=== PATIENT | male | born 1940 | race Caucasian/White ===

== ENCOUNTER 2021-07-26 00:09 | Inpatient (IN) ==
[2021-07-26] MEDS ORDERED: ENOXAPARIN 100 MG/ML SYRINGE SUBCUT STA (00:53)
[2021-07-26] MEDS ORDERED: ENOXAPARIN 40 MG/0.4 ML SYRINGE SUBCUT STA (00:55)
[2021-07-26 02:11] LABS: Basophils % 0.4 % (0.0-0.8); Eosinophils # 0.2 10*3/uL (0.0-0.87); Hematocrit 34.5 VOL% (42.0-52.0); Hemoglobin 11.2 GM/DL (14.0-18.0); Immature Granulocytes % 0.3 %; Immature Granulocytes Absolute 0.03 #; Lymphocytes % 9.7 % (21.2-54.2); Mean Corpuscular HGB Conc 32.5 GM/DL (32-36); Mean Corpuscular Volume 94.8 FL (87-102); Mean Platelet Volume 10.8 FL (9.6-12.0); Monocytes % 2.7 % (1.7-12.7); Neutrophils % 84.9 % (38.7-73.9); Platelet Count 151 T/CUMM (130-400); Red Blood Count 3.64 MC/CUMM (3.8-5.5); Red Cell Distribution Width 12.8 % (9.3-17.3); White Blood Count 10.5 T/CUMM (4-12)
[2021-07-26 02:38] LABS: Albumin 3.4 G/DL (3.4-5.0); Bilirubin,Total 0.4 MG/DL (0.20-1.00); Calcium 9.3 MG/DL (8.5-10.1); Osmolality,Calculated 285.4 MOS/KG (273-304); Potassium 4.5 MMOL/L (3.5-5.1); Thyroid Stimulating Hormone 3.66 uIU/ml (0.358-3.74); Total Protein 6.2 G/DL (6.4-8.2)
[2021-07-26 02:52] LABS: INR 1.1; PT Patient Result 11.9 SECS (10.5-12.0)
[2021-07-26] MEDS ORDERED: DOBUTamine 500 MG/250 ML PREMIX IV SCH (03:05)
[2021-07-26] MEDS ORDERED: MAGNESIUM SULF RIDER 2 GM/50 ML PREMIX IV PRN (03:05)
[2021-07-26] MEDS ORDERED: hydrALAZINE 20 MG/1 ML VIAL IV PRN (03:05)
[2021-07-26] MEDS ORDERED: MAGNESIUM SULF RIDER 4 GM/100 ML PREMIX IV PRN (03:05)
[2021-07-26] MEDS ORDERED: ONDANSETRON 4 MG/2 ML VIAL IV PRN (03:05)
[2021-07-26] MEDS ORDERED: MORPHINE 4 MG/1 ML VIAL IV PRN (03:05)
[2021-07-26] MEDS: SODIUM CHLORIDE 0.9% 1,000 ML IV SCH ×2 (03:14→23:05)
[2021-07-26 04:27] LABS: Barbiturates Screen,Urine Negative (Negative); Benzodiazepines Screen,Urine Negative (Negative); Cannabinoid Screen,Urine Negative (Negative); Opiate Screen,Urine Negative (Negative); Phencyclidine Screen,Urine Negative (Negative)
[2021-07-26 05:35] LABS: Basophils % 0.3 % (0.0-0.8); Eosinophils # 0.2 10*3/uL (0.0-0.87); Eosinophils % 2.2 % (0.00-10.9); Hematocrit 34.9 VOL% (42.0-52.0); Hemoglobin 11.5 GM/DL (14.0-18.0); Immature Granulocytes % 0.2 %; Immature Granulocytes Absolute 0.02 #; Lymphocytes # 1.7 10*3/uL (1.4-4.0); Lymphocytes % 19.1 % (21.2-54.2); Mean Corpuscular Volume 93.6 FL (87-102); Mean Platelet Volume 11.1 FL (9.6-12.0); Monocytes % 4.5 % (1.7-12.7); Neutrophils % 73.7 % (38.7-73.9); Platelet Count 149 T/CUMM (130-400); Red Blood Count 3.73 MC/CUMM (3.8-5.5); Red Cell Distribution Width 12.6 % (9.3-17.3); White Blood Count 9.1 T/CUMM (4-12)
[2021-07-26 05:52] LABS: Albumin 3.1 G/DL (3.4-5.0); Bilirubin,Total 0.5 MG/DL (0.20-1.00); Calcium 9.1 MG/DL (8.5-10.1); Osmolality,Calculated 280.7 MOS/KG (273-304); Potassium 4.8 MMOL/L (3.5-5.1); Risk Ratio 3.66; Total Protein 6.3 G/DL (6.4-8.2); VLDL Cholesterol 20.6 MG/DL
[2021-07-26] MEDS ORDERED: ALBUTEROL 2 MG TABLET PO SCH (09:39)
[2021-07-26] MEDS ORDERED: DOPamine 800 MG/250 ML PREMIX IV ONE (09:46)
[2021-07-26] MEDS: PANTOPRAZOLE 40 MG TABLET PO SCH (10:15)
[2021-07-26] MEDS ORDERED: DOPamine 800 MG/250 ML PREMIX IV PRN (10:39)
[2021-07-26] MEDS ORDERED: diphenhydrAMINE CAP 25 MG CAPSULE PO ONE (10:40)
[2021-07-26] MEDS ORDERED: DIAZEPAM 5 MG TABLET PO ONE (10:40)
[2021-07-26] MEDS ORDERED: ceFAZolin 1,000 MG VIAL IRRIG ONE (10:40)
[2021-07-26 11:25] VITALS: BP 122/49
[2021-07-26] MEDS ORDERED: HEPARIN/NACL 0.9% 2 UNITS/ML 1,000 UNIT/500 ML BAG IV ONE (11:31)
[2021-07-26] MEDS ORDERED: LIDOCAINE 1%/EPI INJ 20 ML VIAL ONE (11:40)
[2021-07-26] MEDS ORDERED: ceFAZolin 1,000 MG VIAL ONE (11:41)
[2021-07-26] MEDS ORDERED: HYDROmorphone 1 MG/1 ML SYRINGE ONE ×2 (11:44→12:34)
[2021-07-26] MEDS ORDERED: MIDAZOLAM 2 MG/2 ML VIAL ONE (11:44)
[2021-07-26] MEDS ORDERED: ONDANSETRON 4 MG/2 ML VIAL ONE (11:50)
[2021-07-26] MEDS ORDERED: TISSUE ADHESIVE 1 EACH APPLICATOR TOP ONE (12:35)
[2021-07-26] MEDS ORDERED: PNEUMOCOCCAL VACCINE (13 VALENT) 0.5 ML SYRINGE IM ONE (12:57)
[2021-07-26] MEDS ORDERED: diphenhydrAMINE CAP 25 MG CAPSULE PO PRN (13:56)
[2021-07-26] MEDS ORDERED: SENNA 8.6 MG TABLET PO PRN (14:02)
[2021-07-26] MEDS: ASPIRIN EC 81 MG TABLET PO SCH (15:36)
[2021-07-26] MEDS: TAMSULOSIN 0.4 MG CAPSULE PO SCH (15:37)
[2021-07-26] MEDS: fentaNYL 75 MCG/HR PATCH TRANSDERM SCH ×3 (15:37→20:39)
[2021-07-26] MEDS: SERTRALINE 100 MG TABLET PO SCH (15:37)
[2021-07-26] MEDS: carvediloL 25 MG TABLET PO SCH (17:21)
[2021-07-26] MEDS: MEMANTINE 5 MG TABLET PO SCH (20:16)
[2021-07-26] MEDS ORDERED: NON-FORMULARY MEDICATION (Bifidobacterium Infantis [Align] 4 mg Capsule) PO SCH (21:00)
[2021-07-26] MEDS ORDERED: SIMVASTATIN 20 MG TABLET PO SCH (21:00)
[2021-07-26] MEDS ORDERED: AMITRIPTYLINE 10 MG TABLET PO SCH (21:00)
[2021-07-26] MEDS ORDERED: DONEPEZIL 5 MG TABLET PO SCH (21:00)
[2021-07-26] MEDS ORDERED: NON-FORMULARY MEDICATION (Naproxen Sodium [Aleve] 220 mg Capsule) PO SCH (21:00)
[2021-07-27] MEDS: fentaNYL 75 MCG/HR PATCH TRANSDERM SCH ×5 (01:00→12:28)
[2021-07-27 04:19] LABS: Basophils % 0.3 % (0.0-0.8); Eosinophils # 0.6 10*3/uL (0.0-0.87); Eosinophils % 6.6 % (0.00-10.9); Hematocrit 35.5 VOL% (42.0-52.0); Hemoglobin 11.6 GM/DL (14.0-18.0); Immature Granulocytes % 0.5 %; Immature Granulocytes Absolute 0.04 #; Lymphocytes # 1.2 10*3/uL (1.4-4.0); Mean Corpuscular HGB Conc 32.7 GM/DL (32-36); Mean Corpuscular Volume 94.2 FL (87-102); Mean Platelet Volume 10.5 FL (9.6-12.0); Neutrophils % 71.6 % (38.7-73.9); Platelet Count 153 T/CUMM (130-400); Red Blood Count 3.77 MC/CUMM (3.8-5.5); Red Cell Distribution Width 12.8 % (9.3-17.3); White Blood Count 8.6 T/CUMM (4-12)
[2021-07-27 04:26] LABS: Osmolality,Calculated 281.4 MOS/KG (273-304); Potassium 4.1 MMOL/L (3.5-5.1)
[2021-07-27] MEDS ORDERED: LEVOTHYROXINE 25 MCG TABLET PO SCH (08:00)
[2021-07-27] MEDS ORDERED: MAGNESIUM CHLORIDE 64 MG TABLET PO SCH (08:00)
[2021-07-27] MEDS: ASPIRIN EC 81 MG TABLET PO SCH (08:50)
[2021-07-27] MEDS: TAMSULOSIN 0.4 MG CAPSULE PO SCH (08:52)
[2021-07-27] MEDS: SERTRALINE 100 MG TABLET PO SCH (08:53)
[2021-07-27] MEDS: carvediloL 25 MG TABLET PO SCH (08:54)
[2021-07-27] MEDS: MEMANTINE 5 MG TABLET PO SCH (08:55)
[2021-07-27] MEDS: PANTOPRAZOLE 40 MG TABLET PO SCH (08:56)
[2021-07-27] MEDS ORDERED: amLODIPine 5 MG TABLET PO SCH (10:23)
[2021-07-27] MEDS ORDERED: amLODIPine 2.5 MG TABLET PO SCH (11:30)
== END 2021-07-27 14:05 | disposition home or self-care (01) | DRG 243 ==
LOC: EDUNIT# → EDBD → N.ED 00:09 → N.EDINP 01:09 → N.CC 11:01
PROVIDERS: ADMIT Internal Medicine Cardiovascular Disease; ATTEND Internal Medicine Cardiovascular Disease